=== PATIENT | male | born 1995 | race Caucasian/White ===

== ENCOUNTER → 2016-07-01 | Outpatient (CLI) | payer OTHER ==
[~2016-07-01] MED LIST: NEUR300C PO; OXYC1TAB23 PO; TRAZ50TA4 PO; no home meds
--- NOTE | 2016-07-08 00:28 | ECWPNPC ---
PATIENT NAME: DAMASO GARCIA : 1995 GENDER: MALE VISIT DATE: 07/01/2016 DISCHARGE DATE: 07/01/16 1232 VISIT LOCKED DATE TIME: PHYSICIAN: EBONY DERAS RESOURCE: EBONY DERAS REASON FOR APPOINTMENT 1. DEMYELINATING DISEASE HISTORY OF PRESENT ILLNESS NEW PATIENT CONSULT: WHEN DID YOUR PAIN FIRST START? . BRIEFLY DESCRIBE HOW YOUR PAIN STARTED? . HOW DOES YOUR PAIN CHANGE WITH TIME? . DOES YOUR PAIN AWAKEN YOU FROM SLEEP? . HOW MANY HOURS OF SLEEP DO YOU NORMALLY GET? . ANY DIAGNOSTIC TESTING? . FACILITY WHERE TESTS WERE DONE? ____. PAIN TREATMENT TREATMENT YES CANCER HAVE YOU EVER HAD ANY TYPE OF CANCER?NO NO. 20 YEAR OLD MALE PATIENT WITH HISTORY OF CHRONIC BACK PAIN. PATIENT DESCRIBES THE PAIN ACHING, SORE, SHOOTING, AND HAVING IT ALL THE TIME WITH A PAIN SCORE OF 7/10. PATIENT REPORTS THAT HE WAS DIAGNOSED WITH MS RECENTLY. PATIENT REPORTS THAT HE SEES A NEUROLOGIST AT [facility]. PATIENT REPORTS THAT HE IS AN ACTIVE [employer] AND WILL BE HERE TILL JANUARY. PATIENT REPORTS THAT HE DOES HAVE DIFFICULTIES SLEEPING AT NIGHT AND THAT IT WOULD BE WORST WITHOUT TIZANIDINE. PATIENT REPORTS THAT GABAPENTIN DOES MAKE HIM TIRED AND IBUPROFEN PROVIDES SOME PAIN RELIEF. PATIENT STATES THAT HE DOES HAVE WEAKNESS IN THE UPPER AND LOWER EXTREMITIES DUE TO MS. PATIENT REPORTS THAT HE HAS TIRED PHYSICAL THERAPY IN THE PAST AND IT DID NOT HELP WITH THE PAIN. PATIENT DENIES UNEXPLAINABLE WEIGHT LOSS, FEVER, CHILLS, NEW CHANGES ON HIS URINARY OR BOWEL CONTROL. PAIN SCREENING: PATIENT HAS A COMPLAINT OF ACUTE OR CHRONIC PAIN YES FALL RISK SCREENING: SCREENING :NO FALLS IN THE PAST YEAR SEARS INVENTORY: QUESTIONNAIRE ASSESSEDTBD SCORE VALUE CALCULATED TBD CURRENT MEDICATIONS TAKING GABAPENTIN 300 MG CAPSULE 1 CAPSULE ORALLY THREE TIMES A DAY TAKING KEPPRA 250 MG TABLET ORALLY TID TAKING TIZANIDINE HCL 2 MG TABLET 1 TABLET NEEDED ORALLY BEFORE BEDTIME TAKING REBIF 44 MCG/0.5ML SOLUTION PREFILLED SYRINGE 0.5 ML SUBCUTANEOUS THREE TIMES A WEEK TAKING VITAMIN D (ERGOCALCIFEROL) 21868 UNIT CAPSULE 1 CAPSULE ORALLY WEEKLY TAKING MULTI FOR HIM - TABLET ORALLY TAKING PREDNISONE 1 TAB ORAL WEANING DOSE TAKING ACTHAR HP STEROID MS TREATMENT TAKING IBUPROFEN 1 TAB ORAL 800MG 6-8 HRS PRN TAKING CELEXA 20 MG TABLET 1 TABLET ORALLY ONCE A DAY MEDICATION LIST REVIEWED AND RECONCILED WITH THE PATIENT PAST MEDICAL HISTORY 2015 DEPRESSION ALLERGIES METHYLPREDNISOLONE: HIVES: ALLERGY SURGICAL HISTORY RIGHT ANKLE FRACTURE 2016 RIGHT HIP SURGERY 2016 RIGHT FOOT GANGLION RELEASED 2009 FAMILY HISTORY FATHER: ALIVE 52 YRS MOTHER: ALIVE 53 YRS 1 SISTER(S) - HEALTHY. 1 SON(S) - HEALTHY. MOTHER - RA. SOCIAL HISTORY GENERAL: TOBACCO USE ARE YOU A:NONSMOKER RECREATIONAL DRUG USE DRUG USE?NO CAFFEINE CAFFEINE USE?YES HOW OFTEN AND HOW MUCH? 1 CUP PER DAY LEARNING BARRIERS / SPECIAL NEEDS BARRIERS TO LEARNING?NO HEARING IMPAIRED?NO VISION IMPAIRED?YES GLASSES READINESS TO LEARN?YES LEARNING PREFERENCES?NO LEARNING CAPABILITIES PRESENT?YES EMOTIONAL BARRIERS?NO SPECIAL DEVICES?NO PSYCHOLOGICAL HX TREATMENTYES HOW OFTEN AND HOW MUCH? TREATMENT FOR DEPRESSION, MEDICATIONS PAIN CLINIC PFS, CLERGY, PUBLIC HEALTH REFERRALS PFS REFERRAL NEEDED?NO CLERGY REFERRAL NEEDED?NO PUBLIC HEALTH REFERRAL NEEDED?NO WAS THE PROVIDER NOTIFIED OF ANY PERTINENT INFO?YES REVIEWED BY: JUAN DIEGO. PATIENT: ____. ADVANCED DIRECTIVES HEALTH CARE PROXY?NO POWER OF MACHINE SNELLER?NO HOSPITALIZATION/MAJOR DIAGNOSTIC PROCEDURE RIGHT HIP SURGERY - REPAIR TENDONS REVIEW OF SYSTEMS CONSTITUTIONAL: ANY CHANGE IN YOUR MEDICAL CONDITION? NO . CHILLS NO . FEVER NO . INFECTION: DO YOU HAVE NEW INFECTIONS? NO . DO YOU HAVE HISTORY OF MRSA? NO . MUSCULOSKELETAL: ANY NEW PATTERNS OF PAIN OR NUMBNESS? NO . SYTEMIC LUPUS NO . GASTROENTEROLOGY: ANY NEW CHANGE IN BOWEL CONTROL? NO . BARRETTS ESOPHAGUS NO . CIRRHOSIS NO . HEPATITIS NO . LIVER FAILURE NO . ACID REFLUX NO . UNEXPLAINED WEIGHT LOSS NO . GENITOURINARY: ANY NEW CHANGE IN BLADDER CONTROL? NO . IS THERE A CHANCE YOU COULD BE ? NO . HEMATOLOGY/LYMPH: DO YOU TAKE ANY BLOOD THINNERS? (FOR EXAMPLE- COUMADIN, PLAVIX, AGGRENOX, PLATEL, PRADAXA, OR XARELTO) NO . WHEN WAS YOUR LAST DOSE? DATE: TIME: . LOW PLATELET COUNT NO . SICKLE CELL DISEASE NO . VON WILLIEBRANDS NO . FACTOR V LEIDEN NO . THALLASEMIA NO . ANEMIA NO . EASY BRUISING NO . NEUROLOGY: HAVE YOU FALLEN IN THE PAST 6 MONTHS? YES, FELL DUE TO DIZZINESS IN MAY. PT STATES THAT HE EXPERIENCES DIZZY SPELLS. FELL AT HOME, NO INJURY. NO REPORT TO ED . ANY NEW EXTREMITY NUMBNESS OR WEAKNESS? NO . HEAD INJURY NO . DEMENTIA NO . CEREBRAL PALSY NO . MULTIPLE SCLEROSIS NO . DIZZINESS NO . HEADACHE NO . STROKES NO . VERTIGO NO . CARDIOLOGY: DO YOU HAVE A PACEMAKER OR DEFIBRILLATOR? NO . ANGINA NO . HEART ATTACK NO . HEART SURGERY NO . CONGESTIVE HEART FAILURE/FLUID OVERLOAD NO . CHEST PAIN NO . HIGH BLOOD PRESSURE NO . IRREGULAR HEART BEAT NO . RESPIRATORY: HAVE YOU BEEN SICK IN THE PAST WEEK? NO . FEVER NO . FLU LIKE SYMPTOMS? NO . CPAP NO . BYPAP NO . ASTHMA NO . EMPHYSEMA NO . CHRONIC LUNG DISEASES NO . SHORTNESS OF BREATH ON EXERTION NO . DO YOU USE ANY TYPE OF TOBACCO (SMOKE, SMOKELESS, CHEW)? NO . COUGH NO . SNORING NO . INTEGUMENTARY: DO YOU HAVE ANY RASHES OR OPEN SORES? NO . ALLERGIC/IMMUNO: ARE YOU ALLERGIC TO SHELLFISH OR IV DYE? NO . ANY NEW ALLERGIES? NO . PSYCHIATRIC: DO YOU HAVE THOUGHTS OF HURTING YOURSELF OR SOMEONE ELSE? NO . ARE YOU ABUSED, NEGLECTED, OR IN AN UNSAFE ENVIRONMENT? NO . ENDOCRINOLOGY: ARE YOU DIABETIC? NO . THYROID DISORDER NO . OTHER: DO YOU NEED ANY PRESCRIPTIONS? NO . IF YES, PLEASE LIST: ____ . ANY NEW PROBLEMS WITH YOUR MEDICATIONS? NO . WHEN DID YOU LAST EAT? ____ . WHEN DID YOU LAST DRINK? ____ . WHAT DID YOU LAST DRINK? ____ . NAME OF PERSON DRIVING YOU HOME? ____ . DO YOU HAVE ANY OTHER QUESTIONS OR CONCERNS NO . REVIEWED BY: PROVIDER: EBONY DERAS MD . VITAL SIGNS WT 222 LBS, HT 72 IN, BMI 30.11 INDEX, BP 124/67 MM HG, HR 65 /MIN, RR 18 /MIN, TEMP 97.7 F, OXYGEN SAT % 99%, SAFE IN ENV? (Y/N) Y, REVIEWED BY: JUAN DIEGO. EXAMINATION : PATIENT IS ALERT O X 3 AND COOPERATIVE. PATIENT AMBULATES WITHOUT A LIMP. PATIENT IS ABLE TO EXTEND HIS BACK AT 10 DEGREES AND FLEX AT 85 DEGREES. PAIN AND TENDERNESS IN THE CERVICAL, THORACIC, LUMBAR PARASPINAL MUSCLE GROUP WITH BANDS OF TISSUE, RESTRICTION OF MOVEMENT, AND PRESENCE OF TRIGGER POINTS. ASSESSMENTS PAIN IN THORACIC SPINE - M54.6 (PRIMARY) LOW BACK PAIN - M54.5 CERVICALGIA - M54.2 MYALGIA - M79.1 TREATMENT PAIN IN THORACIC SPINE NOTES: WE DISCUSSED SEVERAL ISSUES WITH MR. GARCIA'S PAIN MANAGEMENT CASE. AT THIS TIME I WILL INCREASE THE DOSAGE OF THE PATIENT'S TIZANIDINE TO TAKE BEFORE BEDTIME, WITH THE CURRENT DOSAGE PATIENT IS STILL WAKING UP IN THE MIDDLE OF THE NIGHT.. I DISCUSSED WITH THE PATIENT NOT TO USE 4 TABLETS IF IS HE PLANNING ON DRIVING OR WORKING THE NEXT DAY, UNTIL HE KNOWS HOW THE MEDICATION WILL AFFECT HIM. PATIENT IS A GOOD CANDIDATE FOR A TPI. AT THIS TIME PATIENT WOULD LIKE TO PLACE INTERVENTIONS ON HOLD AND TRY MEDICATIONS FIRST. PATIENT TO FOLLOW UP WITH LUCILLE JAQUEZ IN 2 TO 3 WEEKS. INSTRUCTIONS WERE GIVEN, QUESTIONS WERE ANSWERED, PATIENT REPORTS UNDERSTANDING AND AGREES WITH THE PLAN. I, MICHEAL JONES, DOCUMENTED THE ABOVE INFORMATION ACTING A SCRIBE FOR DR. DERAS. I HAVE REVIEWED THE ABOVE DOCUMENT, WRITTEN BY MICHEAL JONES SCRIBE AND I VERIFY THAT IT IS ACCURATE. DEAR JERRELL HUNT, -THANK YOU FOR YOUR KIND REFERRAL OF MR. GARCIA. IF YOU WOULD LIKE TO DISCUSS HIS CASE WITH ME, PLEASE CALL ME AT THE PA[facility]ENTER AT [phone]. OTHERS REFILL TIZANIDINE HCL TABLET, 4 MG, 1 TABLET NEEDED, ORALLY, BEFORE BEDTIME MAY REPEAT IN 4 HRS MDD2, 30 DAY(S), 60, REFILLS 1 PROCEDURE CODES FA211 ESTABILISHED PATIENT [facility] FACILITY CHARGE G8730 PAIN ASSESS POS TOOL F/U PLAN DOC G8427 DOC MEDS VERIFIED W/PT OR RE FOLLOW UP 2-3 WEEKS ELECTRONICALLY SIGNED BY EBONY DERAS MD ON 07/07/2016 AT 08:50 PM EST DISCLAIMER : THIS IS A VISIT SUMMARY EXTRACTED FROM THE [email or web address] CHART. IT IS NOT A COPY OF THE [email or web address] PROGRESS NOTE. MTDD
== END ==
LOC: M PAIN 11:20
PROVIDERS: ATTEND Anesthesiology
DX: G37.9 Demyelinating disease of central nervous system, unspecified (principal); G89.29 Other chronic pain; M54.6 Pain in thoracic spine; M54.5 Low back pain; M54.2 Cervicalgia; M79.1 Myalgia; G35 Multiple sclerosis; F32.9 Major depressive disorder, single episode, unspecified; Z88.8 Allergy status to other drugs, medicaments and biological substances; Z79.1 Long term (current) use of non-steroidal anti-inflammatories (NSAID); Z79.52 Long term (current) use of systemic steroids; Z79.899 Other long term (current) drug therapy; Z87.81 Personal history of (healed) traumatic fracture; Z86.69 Personal history of other diseases of the nervous system and sense organs